=== PATIENT | female | born 1970 | race Two or more races ===

== ENCOUNTER → 2025-01-07 | Outpatient (CLI) | payer MEDICAID, SELFPAY ==
--- NOTE | 2025-01-07 09:38 | XR_ITS ---
EXAMINATION: XR foot comp RT min 3V ORDERING PROVIDER: Shira Blanco ([facility]), HEALTHCARE ECONOMICS CONSULTANT HISTORY: PAIN OF RT. HEEL TECHNIQUE: 3 radiographs of the right foot were obtained. COMPARISON: None. FINDINGS: BONES: No acute fracture or dislocation. ALIGNMENT: Normal. JOINTS: Normal. BONY MINERALIZATION: Normal. SOFT TISSUES: Normal. IMPRESSION: Normal.
== END | disposition home or self-care (01) ==
PROVIDERS: PCP Nurse Practitioner Primary Care; Referring Provider Nurse Practitioner Primary Care; Visit Provider Nurse Practitioner Primary Care
DX: M79.671 Pain in right foot (principal)
CPT/HCPCS: 73630